=== PATIENT | female | born 1975 | race Hispanic/Latino ===

== ENCOUNTER 2020-05-27 20:51 | Emergency (ER) | payer SELFPAY ==
[2020-05-27] MEDS ORDERED: Fluorescein Opthalmic Strip ONE (21:49)
[2020-05-27] MEDS ORDERED: Proparacaine 0.5% Opth 15 ML BOT ONE (21:50)
[2020-05-27] MEDS ORDERED: Acetaminophen 500 MG TAB ONE (22:06)
== END 2020-05-27 22:51 | disposition home or self-care (01) ==
LOC: ERS 20:51
DX: S05.02XA Injury of conjunctiva and corneal abrasion without foreign body, left eye, initial encounter (principal); L03.213 Periorbital cellulitis; W22.8XXA Striking against or struck by other objects, initial encounter; J45.909 Unspecified asthma, uncomplicated; Z79.899 Other long term (current) drug therapy
CPT/HCPCS: 99283